=== PATIENT | female | born 1965 | race Caucasian/White ===

== ENCOUNTER 2017-08-22 10:41 | Emergency (ER) | payer OTHER ==
[~2017-08-22] VITALS: Ht 165.1 cm; Wt 72.6 kg
[2017-08-22] MEDS ORDERED: LOSARTAN POTASS50 MG (10:56)
[2017-08-22] MEDS ORDERED: ATORVASTATIN CA40 MG (10:56)
== END 2017-08-22 15:53 | disposition home or self-care (01) ==
LOC: ER 10:41
DX: B34.9 Viral infection, unspecified (principal)

== ENCOUNTER 2017-11-04 21:29 | Emergency (ER) | payer OTHER ==
[~2017-11-04] VITALS: Ht 165.1 cm; Wt 70.3 kg
[~2017-11-04 21:29] MED LIST: ATORVASTATIN CA40 MG; LOSARTAN POTASS50 MG
[2017-11-05] MEDS ORDERED: NEURONTIN800 MG PO (01:55)
== END 2017-11-05 02:19 | disposition home or self-care (01) ==
LOC: ER 21:29
DX: I10 Essential (primary) hypertension (principal); F06.4 Anxiety disorder due to known physiological condition

== ENCOUNTER 2018-07-01 13:03 | Emergency (ER) | payer OTHER ==
[~2018-07-01] VITALS: Ht 165.1 cm; Wt 72.6 kg
[~2018-07-01 13:03] MED LIST changes: +NEURONTIN800 MG PO
== END 2018-07-01 15:43 | disposition home or self-care (01) ==
LOC: ER 13:03
DX: M54.5 Low back pain (principal)

== ENCOUNTER 2019-07-06 11:23 | Emergency (ER) | payer OTHER ==
[~2019-07-06] VITALS: Ht 165.1 cm; Wt 73.9 kg
[2019-07-06] MEDS ORDERED: [UNRECOGNIZED DRUG - OTHER] (11:57)
[2019-07-06] MEDS ORDERED: ZITHROMAX500 MG PO (18:26)
== END 2019-07-06 18:49 | disposition home or self-care (01) ==
LOC: ER 11:23
DX: J06.9 Acute upper respiratory infection, unspecified (principal); J32.8 Other chronic sinusitis